=== PATIENT | female | born 1975 | race Two or more races ===

== ENCOUNTER 2024-09-16 17:50 | Emergency (ER) | payer MEDICAID ==
[~2024-09-16] VITALS: Ht 160 cm; Wt 113.4 kg
[2024-09-16 17:53] VITALS: O2SAT 99
== END 2024-09-16 19:40 | disposition left against medical advice (07) ==
LOC: ER 17:53
DX: F41.9 Anxiety disorder, unspecified (principal); Z53.21 Procedure and treatment not carried out due to patient leaving prior to being seen by health care provider
CPT/HCPCS: A4606; A4663